=== PATIENT | female | born 1945 | race Two or more races ===

== ENCOUNTER 2016-11-21 17:36 | Emergency (ER) | payer SELFPAY ==
[~2016-11-21] VITALS: Ht 157.5 cm; Wt 55.0 kg
[2016-11-21 17:38] VITALS: Ht 157.5 cm; Wt 55.0 kg
== END 2016-11-21 21:49 | disposition left against medical advice (07) ==
LOC: E/R 17:36
DX: Z53.21 Procedure and treatment not carried out due to patient leaving prior to being seen by health care provider (principal)

== ENCOUNTER → 2017-09-23 | Outpatient (CLI) | END | disposition home or self-care (01) ==